=== PATIENT | male | born 1995 | race African-American/Black ===

== ENCOUNTER 2022-12-08 11:53 | Emergency (ER) | payer SELFPAY ==
[~2022-12-08] VITALS: Ht 175.3 cm; Wt 60.0 kg
[2022-12-08] MEDS ORDERED: IBUPROFEN 400MG TABLET PO ONE (12:45)
[2022-12-08] MEDS ORDERED: TETANUS, DIPHTHERIA, PERTUSSIS VAC/PF 0.5ML (>10YR OLD) IM ONE (12:45)
[2022-12-08] MEDS ORDERED: BACITRACIN ZINC OINT UDPKT TOP ONE (13:30)
[2022-12-08] MEDS ORDERED: BO1 TP (14:00)
[2022-12-08 14:01] VITALS: BP 127/88
== END 2022-12-08 14:46 | disposition home or self-care (01) ==
LOC: ER 14:36
DX: S61.210A Laceration without foreign body of right index finger without damage to nail, initial encounter (principal); W45.8XXA Other foreign body or object entering through skin, initial encounter; Y93.89 Activity, other specified; Y92.89 Other specified places as the place of occurrence of the external cause; Y99.8 Other external cause status
CPT/HCPCS: 90471; 90715; 99283